=== PATIENT | male | born 1995 | race Caucasian/White ===

== ENCOUNTER 2017-07-11 19:54 | Emergency (ER) | payer MEDICAID ==
[2017-07-11] MEDS ORDERED: Ketorolac INJ* 60 MG/2 ML VIAL IM ONE (20:23)
--- NOTE | 2017-07-11 20:45 | RAD ---
HISTORY: Right hand injury COMPARISONS: August 20, 2013 VIEWS: 4, Frontal, lateral, and oblique views of the right hand FINDINGS: BONE DENSITY: Normal. BONES: There is no displaced fracture. JOINTS: There is no arthropathy. ALIGNMENT: There is no dislocation. SOFT TISSUES: Unremarkable. OTHER FINDINGS: None. IMPRESSION: NO ACUTE OSSEOUS INJURY. IF SYMPTOMS PERSIST, RECOMMEND REPEAT IMAGING.
--- NOTE | 2017-07-11 20:53 | ED ---
Upper Extremity Pain - HPI Summary HPI Summary: Patient is a 21-year-old male presenting to the ED with the chief complaint of right hand pain and swelling after falling against a dumpster with his middle and fourth finger spread around the bar of the dumpster and hyperextending the middle finger. He injured the hand 2 days ago. He has not been using anything for relief [id number]. He endorses pain over the dorsum of the hand most notably to the middle and fourth MCPs and just proximal to the MCPs. Denies any wrist pain without limitations of flexion and extension of the wrist. Denies any bruising. Moderate amount of swelling. He is able to flex and extend at the MCPs. Pain is rated a 7 out of 10, constant and throbbing. - History of Current Complaint Chief Complaint: EDExtremityUpper Stated Complaint: RIGHT HAND INJURY Time Seen by Provider: 07/11/17 19:58 Hx Obtained From: Patient Mechanism Of Injury: Twisted Onset/Duration: Started Days Ago Timing: Constant Severity Initially: Mild Severity Currently: Mild Pain Location: Hand, Finger Character: Aching Aggravating Factor(s): Movement, Lifting, Flexion, Extension Alleviating Factor(s): Rest, Ice Associated Signs & Symptoms: Positive: Swelling Related History: Dominant Hand Right - Risk Factors Non-Orthopedic Risk Factor: Negative DVT Risk Factors: Negative Septic Arthritis Risk Factor: Negative Compartment Syndrome Risk Factors: Pain - Allergies/Home Medications Allergies/Adverse Reactions: Allergies Allergy/AdvReac Type Severity Reaction Status Date / Time MS Bee Venom [Bee Venom] Allergy Severe Anaphylatic Verified 08/20/13 18:24 Shock Home Medications: Home Medications NK [No Home Medications Reported] 07/11/17 [History Confirmed 07/11/17] PMH/Surg Hx/FS Hx/Imm Hx Previously Healthy: Yes - Immunization History Hx Pertussis Vaccination: No Immunizations Up to Date: Unable to Obtain/Confirm Infectious Disease History: No Infectious Disease History: Denies: Traveled Outside the [place] in Last 30 Days - Social History Occupation: Employed Full-time Lives: With Family Alcohol Use: Occasionally Hx Substance Use: Yes Substance Use Type: Reports: Marijuana Substance Use Comment - Amount & Last Used: occasionally Hx Tobacco Use: Yes Smoking Status (MU): Heavy Every Day Tobacco Smoker Review of Systems Constitutional: Negative Negative: Fever, Chills, Fatigue, Skin Diaphoresis Negative: Photophobia, Blurred Vision Negative: Chest Pain Negative: Shortness Of Breath, Cough Negative: Abdominal Pain Positive: Arthralgia, Myalgia Positive: Other - swelling of the dorsum of the hand Neurological: Negative All Other Systems Reviewed And Are Negative: Yes Physical Exam Triage Information Reviewed: Yes Vital Signs On Initial Exam: Initial Vitals Temp Pulse Resp BP Pulse Ox 98.8 F 78 20 123/66 97 07/11/17 19:58 07/11/17 19:58 07/11/17 19:58 07/11/17 19:58 07/11/17 19:58 Vital Signs Reviewed: Yes Appearance: Positive: Well-Appearing, Well-Nourished Skin: Positive: Warm, Other - Swelling to the dorsum of the right hand Head/Face: Positive: Normal Head/Face Inspection Eyes: Positive: EOMI, TONY, Conjunctiva Clear Neck: Positive: Supple, No Lymphadenopathy Respiratory/Lung Sounds: Positive: Clear to Auscultation, Breath Sounds Present Cardiovascular: Positive: Normal, RRR, Pulses are Symmetrical in both Upper and Lower Extremities Musculoskeletal: Positive: Pain @ - Swelling over the dorsum of the right hand without ecchymosis Neurological: Positive: Speech Normal Psychiatric: Positive: Normal, Affect/Mood Appropriate AVPU Assessment: Alert Diagnostics - Vital Signs Vital Signs Temp Pulse Resp BP Pulse Ox 07/11/17 19:58 98.8 F 78 20 123/66 97 - Laboratory Lab Statement: Any lab studies that have been ordered have been reviewed, and results considered in the medical decision making process. Course/Dx - Course Course Of Treatment: During the course treatment, the patient is evaluated for right hand swelling after an injury. X-ray obtained which shows no acute findings. There is a moderate amount of swelling. Flexion and extension at the MCP joints intact. Flexion and extension at the wrist joint intact. I have Roddy wrapped the hand for comfort and have advised he follow-up with ortho if symptoms become worse. He is agreeable to this plan. He is given 60 mg Toradol. - Diagnoses Differential Diagnosis/HQI/PQRI: Positive: Contusion, Strain, Sprain Provider Diagnoses: Hand sprain Discharge - Sign-Out/Discharge Documenting (check all that apply): Discharge - Discharge Plan Condition: Stable Disposition: HOME Patient Education Materials: Hand Sprain (ED) Referrals: jP MENSAHPSkyla [Primary Care Provider] - Triston Luna MD [Medical Doctor] - Additional Instructions: As discussed, I am unable to tell if you have a ligamentous injury or if this is a muscular sprain Please follow-up with Dr. Luna Ibuprofen 600 mg 3 times daily Ice to the area Keep it roddy wrapped until you begin to feel better - Billing Disposition and Condition Condition: STABLE Disposition: HOME Images - Images Hands: 1 - Swelling without ecchymosis
[2017-07-11 21:00] VITALS: BP 119/69
== END 2017-07-11 21:13 | disposition home or self-care (01) ==
LOC: ED 19:54
DX: S63.91XA Sprain of unspecified part of right wrist and hand, initial encounter (principal); W22.09XA Striking against other stationary object, initial encounter; Y92.9 Unspecified place or not applicable; F17.210 Nicotine dependence, cigarettes, uncomplicated
CPT/HCPCS: 96372; 99282; J1885

== ENCOUNTER 2017-09-27 20:07 | Emergency (ER) | payer MEDICAID, OTHER ==
[2017-09-27] MEDS ORDERED: NS 0.9% 1000 ML* 1,000 ML IV ONE (20:49)
[2017-09-27] MEDS ORDERED: Ketorolac INJ* 30 MG/ML 1 ML VIAL IV PUSH ONE (20:52)
[2017-09-27 21:15] LABS: ABS Basophils 0 10^3/ul (0-0.2); ABS Eosinophils 0.2 10^3/ul (0-0.6); ABS Lymphocytes 2.4 10^3/ul (1.0-4.8); ABS Monocytes 0.8 10^3/ul (0-0.8); ABS Neutrophils 3.3 10^3/ul (1.5-7.7); ABS Nucleated RBC 0 10^3/ul; Eosinophil % 2.6 % (0-6); Hematocrit 42 % (42-52); Hemoglobin 14.6 g/dl (14.0-18.0); Lymphocyte % 34.9 % (25-47); Mean Corpuscular HGB Conc 35 g/dl (31-36); Mean Corpuscular Hemoglobin 31 pg (27-31); Mean Corpuscular Volume 89 fL (80-94); Nucleated Red Blood Cells % 0; Platelet Count 229 10^3/ul (150-450); Red Blood Count 4.75 10^6/ul (4.00-5.40); Red Cell Distribution Width 13 % (10.5-15); White Blood Count 6.8 10^3/ul (3.5-10.8)
[2017-09-27 21:25] LABS: EGFR Non-African American 95.9 (>60)
--- NOTE | 2017-09-27 21:44 | RAD ---
Indication: RIGHT flank pain for one month. Kidney stones. Hematuria. Comparison: Abdomen radiograph of the same date. Technique: RIGHT unilateral renal ultrasound. Report: 11.0 x 3.8 x 5.7 cm RIGHT kidney demonstrates normal cortical contour and echogenicity. No conspicuous stones or hydronephrosis. Negative for focal renal lesions. Negative for perinephric fluid. IMPRESSION: Negative RIGHT renal ultrasound.
--- NOTE | 2017-09-27 21:46 | RAD ---
Indication: Hematuria. History of kidney stones. Comparison: RIGHT renal ultrasound of the same date and May 21, 2010 CT. Technique: Supine view of the abdomen. Report: No calcifications visualized at the level of either renal fossa or along the expected course of the ureters. Small LEFT pelvic phlebolith noted. Unremarkable bowel gas pattern and soft tissue contours. IMPRESSION: No radiographic evidence for urolithiasis.
[2017-09-27 22:17] LABS: Urine Appearance Clear; Urine Blood 2+ (Negative); Urine Color Yellow; Urine Ketones Negative (Negative); Urine Protein Negative (Negative); Urine Red Blood Cell 3+(>10/hpf) (Absent); Urine Specific Gravity 1.027 (1.010-1.030); Urine Urobilinogen Negative (Negative); Urine White Blood Cell Trace(0-5/hpf) (Absent)
--- NOTE | 2017-09-27 22:23 | ED ---
Joon Bernal Jade, scribed for Marilynn Garcia MD on 09/27/17 at 205 . GI/ HPI - HPI Summary HPI Summary: Pt is a 21 y/o male who presents to the ED c/o right flank pain, hematuria, and N/V/D. The pain is worse on the right side than the left side, and is now rated 8/10 in severity. Pt has had symptoms for 1 month, but the pain has become worse in the past few days since he has developed vomiting and diarrhea. In the morning the pain is worse, and radiates down to his testicles. He went to a clinic 1 month ago for hematuria at the [facility] in [place], where what describes as a plain XR showed no kidney stone. Pt still sometimes has orange urine, but denies any penile discharge. Pt has not taken any medications for the pain at home today. PMHx "kidney stones" since age 7, last episode 4-5 years ago. He states this episode feels exactly like the last time he had a kidney stone. Pt states he saw a kidney specialist in [place] when he had a kidney stone at 7 years old. Pt does not recall any retrieval of kidney stones in the past. FHx kidney problems (cousin) who has kidney stones, and pt thinks is on dialysis. Pt is accompanied by his girlfriend Yadira. He is an every day smoker. Pt does not take any medications at home. - History of Current Complaint Chief Complaint: EDFlankPain Time Seen by Provider: 09/27/17 20:49 Stated Complaint: FLANK PAIN Hx Obtained From: Patient, Family/Manager Of Planning - Yadira, Medical Records - [facility] records show encounters for "kidney stones", but CT's visible in [facility] system do not show any nephrolithiasis or ureterolithiasis. Onset/Duration: Started Weeks Ago - 1 month, Still Present Timing: Constant Severity: Moderate Current Severity: Severe Pain Intensity: 8 Location of Pain: Flank - R>L Additional Locations for Males: Testicles Pain Characteristics: Colicy Pain Radiates to: Inguinal Associated Signs and Symptoms: Positive: Nausea, Vomiting, Diarrhea, Hematuria Additional Signs & Symptoms: Negative: Penile Discharge Aggravating Factor(s): Urination Alleviating Factor(s): Nothing - Allergy/Home Medications Allergies/Adverse Reactions: Allergies Allergy/AdvReac Type Severity Reaction Status Date / Time MS Bee Venom [Bee Venom] Allergy Severe Anaphylatic Verified 09/27/17 20:16 Shock PMH/Surg Hx/FS Hx/Imm Hx Previously Healthy: No History: Reports: Hx Kidney Stones Musculoskeletal History: Reports: Other Musculoskeletal History - Metal FB in right upper arm - Surgical History Surgery Procedure, Year, and Place: none Infectious Disease History: No Infectious Disease History: Denies: Traveled Outside the [place] in Last 30 Days - Family History Known Family History: Positive: Renal Disease - Kidney problems (cousin), stones and dialysis - Social History Occupation: Employed Full-time Alcohol Use: Occasionally Hx Substance Use: Yes Substance Use Type: Reports: Marijuana Substance Use Comment - Amount & Last Used: occasionally Hx Tobacco Use: Yes Smoking Status (MU): Heavy Every Day Tobacco Smoker Review of Systems Constitutional: Negative Cardiovascular: Negative Respiratory: Negative Positive: Vomiting, Diarrhea, Nausea Positive: flank pain - R>L, hematuria. Negative: discharge - Penile Skin: Negative Neurological: Negative Psychological: Normal All Other Systems Reviewed And Are Negative: Yes Physical Exam - Summary Physical Exam Summary: Appearance: ill-appearing, moderate pain distress, thin, diaphoretic Skin: Warm, color reflects adequate perfusion, diaphoretic Head: Normal Head/Face inspection, atraumatic Eyes: Conjunctiva clear ENT: Normal inspection Neck: Supple, no nodes, no JVD Respiratory: Lungs clear, normal breath sounds, no respiratory distress Cardio: RRR, No murmur, pulses normal, brisk capillary refill Abdomen: Soft, mild diffuse tenderness, right CVA tenderness : circumcised penis, testicles descended bilaterally, no masses, nontender, no hernias bilaterally inguinal or femoral, no discharge from the penis Bowel sounds: Present Musculoskeletal: Strength Intact/ROM intact, no calf tenderness, no edema. Psychological: Normal Neuro: Alert, muscle tone normal, no focal deficit Triage Information Reviewed: Yes Vital Signs On Initial Exam: Initial Vitals Temp Pulse Resp BP Pulse Ox 98.2 F 73 18 143/76 99 09/27/17 20:11 09/27/17 20:11 09/27/17 20:11 09/27/17 20:11 09/27/17 20:11 Vital Signs Reviewed: Yes Diagnostics - Vital Signs Vital Signs Temp Pulse Resp BP Pulse Ox 09/27/17 20:11 98.2 F 73 18 143/76 99 - Laboratory Result Diagrams: 09/27/17 21:01 09/27/17 21:01 Lab Statement: Any lab studies that have been ordered have been reviewed, and results considered in the medical decision making process. - Radiology Abd XR Xray Interpretation: No Acute Changes - 20:51: No radiographic evidence for urolithiasis. ED physician reviewed radiology report. Radiology Interpretation Completed By: Radiologist - Ultrasound No standard instances Ultrasound Interpretation: No Acute Changes - Renal US 20:50: Negative RIGHT renal ultrasound. ED physician reviewed radiology report. Ultrasound Interpretation Completed By: Radiologist Re-Evaluation - Re-Evaluation First Eval Re-Evaluation Time: 21:50 Change: Improved Comment: pain is decreased from 8 to 6 after toradol Second Eval Re-Evaluation Time: 22:25 Change: Unchanged Comment: advised that Dr. Tejada recommends CT scan GIGU Course/Dx - Course Course Of Treatment: Pt is a 21 y/o with a PMHx of kidney stones who presents c/ o flank pain, N/V/D, and hematuria. He has had symptoms for 1 month, but they have become worse the past few days. In pt with known hx kidney stones and hematuria, attempted to spare pt radiation exposure, by starting with renal US and KUB. A renal US revealed negative RIGHT renal ultrasound. An abdominal XR revealed no radiographic evidence for urolithiasis. Case discussed with Dr. Tejada who recommends CT abd/pelvis without contrast for this patient because pt needs a definitive diagnosis. Dr. Tejada recommends that if there are no stones on CT, pt needs nephrology referral. Dxs are hematuria and flank pain at time of sign out to Dr. Forrester with CT pending. Pt allergies and medications reviewed in this visit. - Diagnoses Differential Diagnoses - Male: Dehydration, Gastroenteritis (Bacterial), Gastroenteritis (Viral), Pyelonephritis, Renal Calculi, Renal Colic, Ureteral Calculi, Urinary Tract Infection, Other - renal disease Provider Diagnoses: Flank pain, Hematuria, Medullary sponge kidney of both kidneys - Physician Notifications Discussed Care Of Patient With: Stef Tejada - recommends CT w/o contrast to get definitive dx;if no stone needs nephrology referral Time Discussed With Above Provider: 22:15 Discharge - Sign-Out/Discharge Documenting (check all that apply): Sign-Out Patient Signing out patient TO: Benji Forrester - pending CT abd pelvis w/o; 09/27/17 22: 25pm - Discharge Plan Condition: Improved Disposition: HOME Prescriptions: traMADol TAB* [Ultram*] 50 mg PO Q8HR 5 Days #15 tab MDD 3 Forms: *Work Release Referrals: Josey Grant [Primary Care Provider] - Dillon Mcneal MD [Medical Doctor] - As Soon As Possible Additional Instructions: Call in the morning to follow-up with nephrology. Return with obvious blood in the urine, increased pain, worse or other concerns. Take Tylenol as needed for discomfort. Avoid anti-inflammatory medications until you see the kidney doctor. - Billing Disposition and Condition Condition: IMPROVED Disposition: Home The documentation as recorded by the Joon jewell Jade accurately reflects the service I personally performed and the decisions made by me, Marilynn Garcia MD.
--- NOTE | 2017-09-27 23:57 | ED ---
Progress - Progress Note Progress Note: I assumed care for from Dr. Milner pending CT scan of the abdomen and pelvis for this patient. He has had microscopic hematuria and some mild to moderate flank pain. He is no distress. CT scan was performed and showed evidence for medullary sponge kidney. There is no evidence of hydronephrosis or ureterolithiasis. Dr. Milner had previously set up follow-up with the driver license agent. Re-Evaluation - Re-Evaluation First Eval Change: Improved Course/Dx - Course Course Of Treatment: Pt is a 21 y/o with a PMHx of kidney stones who presents c/ o flank pain, N/V/D, and hematuria. He has had symptoms for 1 month, but they have become worse the past few days. Physical exam showed thin, diaphoretic, mild diffuse abdominal tenderness, right CVA tenderness, circumcised penis, testicles descended bilaterally, no masses, no hernias bilaterally inguinal or femoral, and no discharge from penis. A renal US revealed negative RIGHT renal ultrasound. An abdominal XR revealed no radiographic evidence for urolithiasis. Case discussed with Dr. Tejada who recommends CT abd/pelvis without contrast for this patient because pt needs a definitive diagnosis. Dr. Tejada recommends that if there are no stones on CT, pt needs nephrology referral. Dxs are hematuria and flank pain at time of sign out to Dr. Forrester. Pt allergies reviewed in this visit. Microscopic hematuria, and CT positive for medullary sponge kidney. Discharged to follow-up with nephrology. Questionable nephropathy. - Diagnoses Provider Diagnoses: Flank pain, Hematuria, Medullary sponge kidney of both kidneys - Provider Notifications Time Discussed With Above Provider: 22:15 Discharge - Sign-Out/Discharge Documenting (check all that apply): Discharge/Admit/Transfer - Discharge Plan Condition: Improved Disposition: HOME Prescriptions: traMADol TAB* [Ultram*] 50 mg PO Q8HR 5 Days #15 tab MDD 3 Forms: *Work Release Referrals: Josey Grant [Primary Care Provider] - Dillon Mcneal MD [Medical Doctor] - As Soon As Possible Additional Instructions: Call in the morning to follow-up with nephrology. Return with obvious blood in the urine, increased pain, worse or other concerns. Take Tylenol as needed for discomfort. Avoid anti-inflammatory medications until you see the kidney doctor. - Billing Disposition and Condition Condition: IMPROVED Disposition: Home
[2017-09-28 01:56] VITALS: BP 108/62
--- NOTE | 2017-09-28 07:57 | RAD ---
CLINICAL HISTORY: right flank pain COMPARISON: May 21, 2010 TECHNIQUE: Multiple contiguous axial CT scans were obtained of the abdomen and pelvis, without intravenous contrast enhancement. Coronal and sagittal multiplanar reformations are submitted for review. Oral contrast was not administered. FINDINGS: The study is limited by the lack of intravenous contrast. This limits evaluation of the solid organs and vasculature. LUNG BASES: The lung bases are clear. LIVER: The liver is normal in shape, size, contour, and attenuation. BILE DUCTS: There is no intrahepatic or extrahepatic biliary dilatation. GALLBLADDER: The gallbladder is normal, without pericholecystic inflammatory change. PANCREAS: The pancreas is normal, without mass or ductal dilatation. SPLEEN: Normal in size and appearance. UPPER GI TRACT: Evaluation of the gastrointestinal tract is limited by incomplete gastric distention. The upper GI tract is unremarkable. SMALL BOWEL AND MESENTERY: The small bowel is normal in contour, course, and caliber. There is no obstruction or dilatation. COLON: The colon is normal in contour, course, caliber. There is no pericolonic inflammatory change. There is a tubular, vermiform, hollow viscus that is blind ending, and originates from the cecum, consistent with a normal appendix. There is no periappendiceal inflammatory change. This is best seen on coronal images 32 through 36. ADRENALS: Normal bilaterally. KIDNEYS: There is increased attenuation of the medullary pyramids. There is no appreciable hydronephrosis or ureteral calculus. BLADDER: The bladder is smooth in contour. PELVIC ORGANS: The prostate gland is normal. The seminal vesicles are symmetric. AORTA: The aorta is normal. IVC: Unremarkable LYMPH NODES: There is no lymphadenopathy by size criteria. ABDOMINAL WALL: There is no evidence for abdominal wall hernia. BONES AND SOFT TISSUES: There is partial resolution of the S1 vertebral body. There is a broad-based disc bulge at L5-S1. OTHER: None IMPRESSION: INCREASED ATTENUATION OF THE RENAL MEDULLARY PYRAMIDS. SUGGESTIVE OF MEDULLARY SPONGE KIDNEY. THERE IS NO APPRECIABLE URETERAL STONE OR HYDRONEPHROSIS.
== END 2017-09-28 01:55 | disposition home or self-care (01) ==
LOC: ED 20:07
DX: R10.84 Generalized abdominal pain (principal); R31.9 Hematuria, unspecified; Q61.5 Medullary cystic kidney; R19.7 Diarrhea, unspecified; F17.210 Nicotine dependence, cigarettes, uncomplicated
CPT/HCPCS: 36415; 74018; 74176; 76775; 80053; 81003; 81015; 83605; 85025; 86140; 87086; 99283; J1885